=== PATIENT | male | born 1960 | race Caucasian/White ===

== ENCOUNTER 2019-08-21 20:55 | Emergency (ER) | payer SELFPAY ==
--- NOTE | 2019-08-21 21:33 | EDM.PDOC ---
ED HPI GENERAL MEDICAL PROBLEM - General Chief Complaint: General Stated Complaint: NURSE SPOKE TO PT Time Seen by Provider: 08/21/19 21:29 Source of Information: Reports: Patient History Limitations: Reports: No Limitations - History of Present Illness INITIAL COMMENTS - FREE TEXT/NARRATIVE: HISTORY AND PHYSICAL: History of present illness: Patient is a 59-year-old male presenting to the emergency room for bilateral leg cramps and lower back pain. Patient states this is new and would like this checked out as he has had the same symptoms in the past and notified me that the cause of it was "low potassium". Patient describes the pain that he is feeling as "aching and cramping". He rates at a 4 out of 10. 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 He is so notified me that he has bulging disks at L4 and L5. He did report that he has urinary frequency which has been a new finding, but denies urgency or dysuria. Patient denies any fever, chills, headache, change in vision, syncope or near syncope. Denies any chest pain, shortness of breath or cough. Denies any new abdominal pain, nausea, vomiting, diarrhea, constipation or dysuria. Has not noted any blood in urine or stool. Patient has been eating and drinking appropriately. Review of systems: As per history of present illness and below otherwise all systems reviewed and negative. Past medical history: As per history of present illness and as reviewed below otherwise noncontributory. Surgical history: As per history of present illness and as reviewed below otherwise noncontributory. Social history: See social history for further information Family history: As per history of present illness and as reviewed below otherwise noncontributory. Physical exam: General: Patient is a well-nourished and well-developed 59-year-old male. Alert and oriented. Nontoxic in appearance and in no acute distress. Vital signs are stable and have been reviewed by me. HEENT: Atraumatic, normocephalic, pupils equal and reactive bilaterally, negative for conjunctival pallor or scleral icterus, mucous membranes moist, TMs normal bilaterally, throat clear, neck supple, nontender, trachea midline. No drooling or trismus noted. No meningeal signs. No hot potato voice noted. Lungs: Clear to auscultation, breath sounds equal bilaterally, chest nontender. Heart: S1S2, regular rate and rhythm without overt murmur C-spine/Back: No pinpoint vertebral tenderness upon palpation. No crepitus, step -offs or obvious deformities. Patient is ambulatory into the emergency room without difficulty or deficit. Able to rock back on heels and walk on toes. Denies any urinary or fecal incontinence. Denies any numbness, tingling or saddle paresthesia. Abdomen: Soft, nondistended, nontender. Negative for masses or hepatosplenomegaly. Negative for costovertebral tenderness. Skin: Intact, warm, dry. No lesions or rashes noted. Extremities: Atraumatic, moves all extremities per self without difficulty or deficits, negative for cords or calf pain. Neurovascular unremarkable. Neuro: Awake, alert, oriented. Cranial nerves II through XII unremarkable. Cerebellum unremarkable. Motor and sensory unremarkable throughout. Exam nonfocal. Notes: Supportive care measures were reviewed and discussed. Voices understanding and is agreeable to plan of care. Denies any further questions or concerns at this time. Diagnostics: CBC, CMP, EKG (refused), UA Therapeutics: K-Dur Prescription: None Impression: Encounter for medical screening Muscle Cramping Plan: 1. Please use Tylenol and/or Ibuprofen as needed for pain and fever management. 2. Get plenty of Rest. Encourage fluids to prevent dehydration. Adjust your diet to increase foods that are rich in potassium. 3. Please follow up with your primary care provider. Return to the ED as needed as discussed. Definitive disposition and diagnosis as appropriate pending reevaluation and review of above. Bilateral Legs Pain Score (Numeric/FACES): 4 - Related Data Allergies Allergy/AdvReac Type Severity Reaction Status Date / Time morphine AdvReac Headache Verified 08/21/19 21:03 Home Meds: Home Meds Pantoprazole Sodium [Protonix] 20 mg PO DAILY 08/21/19 [History] amLODIPine [Norvasc] 5 mg PO DAILY 08/21/19 [History] Past Medical History HEENT History: Reports: Impaired Vision Cardiovascular History: Reports: Hypertension Psychiatric History: Reports: Anxiety - Infectious Disease History Infectious Disease History: Reports: Hepatitis C - Past Surgical History HEENT Surgical History: Reports: None Social & Family History - Family History Family Medical History: Noncontributory - Tobacco Use Smoking Status *Q: Current Every Day Smoker Years of Tobacco use: 30 Packs/Tins Daily: 1 - Caffeine Use Caffeine Use: Reports: Coffee, Energy Drinks, Soda - Recreational Drug Use Recreational Drug Use: No ED ROS GENERAL - Review of Systems Review Of Systems: ROS reveals no pertinent complaints other than HPI. ED EXAM, GENERAL - Physical Exam Exam: See Below (See dictation) Course - Vital Signs Last Recorded V/S: Last Vital Signs Temp 96.4 F 08/21/19 21:04 Pulse 70 08/21/19 21:04 Resp 20 08/21/19 21:04 BP 141/89 H 08/21/19 21:04 Pulse Ox 94 L 08/21/19 21:04 - Orders/Labs/Meds Orders: Active Orders 24 hr Category Date Time Status EKG Documentation Completion [RC] STAT Care 08/21/19 21:29 Active Potassium Chloride [Klor-Con M20] Med 08/21/19 22:23 Once 40 meq PO ONETIME ONE Labs: Laboratory Tests 08/21/19 08/21/19 08/21/19 Range/Units 21:50 21:50 21:50 WBC 9.39 (4.0-11.0) K/uL RBC 4.80 (4.50-5.90) M/uL Hgb 14.8 (13.0-17.0) g/dL Hct 43.7 (38.0-50.0) % MCV 91.0 (80.0-98.0) fL MCH 30.8 (27.0-32.0) pg MCHC 33.9 (31.0-37.0) g/dL RDW Std Deviation 43.7 (28.0-62.0) fl RDW Coeff of Koby 13 (11.0-15.0) % Plt Count 221 (150-400) K/uL MPV 10.00 (7.40-12.00) fL Neut % (Auto) 54.8 (48.0-80.0) % Lymph % (Auto) 30.6 (16.0-40.0) % [place] % (Auto) 10.3 (0.0-15.0) % Eos % (Auto) 3.9 (0.0-7.0) % Baso % (Auto) 0.4 (0.0-1.5) % Neut # (Auto) 5.1 (1.4-5.7) K/uL Lymph # (Auto) 2.9 H (0.6-2.4) K/uL [place] # (Auto) 1.0 H (0.0-0.8) K/uL Eos # (Auto) 0.4 (0.0-0.7) K/uL Baso # (Auto) 0.0 (0.0-0.1) K/uL Nucleated RBC % 0.0 /100WBC Nucleated RBCs # 0 K/uL Sodium 140 (136-148) mmol/L Potassium 3.3 L (3.5-5.1) mmol/L Chloride 104 (98-107) mmol/L Carbon Dioxide 28.5 (21.0-32.0) mmol/L BUN 16 (7.0-18.0) mg/dL Creatinine 0.8 (0.8-1.3) mg/dL Est Cr Clr Drug Dosing 98.56 mL/min Estimated GFR (MDRD) > 60.0 ml/min Glucose 117 H (74-106) mg/dL Calcium 8.8 (8.5-10.1) mg/dL Total Bilirubin 1.0 (0.2-1.0) mg/dL AST 20 (15-37) IU/L ALT 39 (14-63) IU/L Alkaline Phosphatase 103 (46-116) U/L Total Protein 7.5 (6.4-8.2) g/dL Albumin 3.6 (3.4-5.0) g/dL Globulin 3.9 (2.6-4.0) g/dL Albumin/Globulin Ratio 0.9 (0.9-1.6) Urine Color YELLOW Urine Appearance CLEAR Urine pH 5.5 (5.0-8.0) Ur Specific [place] >= 1.030 (1.001-1.035) Urine Protein NEGATIVE (NEGATIVE) mg/dL Urine Glucose (UA) NEGATIVE (NEGATIVE) mg/dL Urine Ketones NEGATIVE (NEGATIVE) mg/dL Urine Occult Blood NEGATIVE (NEGATIVE) Urine Nitrite NEGATIVE (NEGATIVE) Urine Bilirubin NEGATIVE (NEGATIVE) Urine Urobilinogen 0.2 (<2.0) EU/dL Ur Leukocyte Esterase NEGATIVE (NEGATIVE) Departure - Departure Time of Disposition: 22:25 Disposition: Home, Self-Care 01 Clinical Impression: Encounter for medical screening examination, Muscle cramping - Discharge Information Instructions: Muscle Cramps and Spasms, [id number] Referrals: PCP,None [Primary Care Provider] - Forms: ED Department Discharge Additional Instructions: The following information is given to patients seen in the emergency department who are being discharged to home. This information is to outline your options for follow-up care. We provide all patients seen in our emergency department with a follow-up referral. The need for follow-up, as well as the timing and circumstances, are variable depending upon the specifics of your emergency department visit. If you don't have a primary care physician on staff, we will provide you with a referral. We always advise you to contact your personal physician following an emergency department visit to inform them of the circumstance of the visit and for follow-up with them and/or the need for any referrals to a consulting specialist. The emergency department will also refer you to a specialist when appropriate. This referral assures that you have the opportunity for follow-up care with a specialist. All of these measure are taken in an effort to provide you with optimal care, which includes your follow-up. Under all circumstances we always encourage you to contact your private physician who remains a resource for coordinating your care. When calling for follow-up care, please make the office aware that this follow-up is from your recent emergency room visit. If for any reason you are refused follow-up, please contact the [facility] Emergency Department at and asked to speak to the emergency department charge nurse. [facility] [address] [place] [id number] [facility] [address] [place] [id number] 1. Please use Tylenol and/or Ibuprofen as needed for pain and fever management. 2. Get plenty of Rest. Encourage fluids to prevent dehydration. Adjust your diet to increase foods that are rich in potassium. 3. Please follow up with your primary care provider. Return to the ED as needed as discussed. - My Orders Last 24 Hours: My Active Orders 08/21/19 21:29 EKG Documentation Completion [RC] STAT 08/21/19 22:23 Potassium Chloride [Klor-Con M20] 40 meq PO ONETIME ONE - Assessment/Plan Last 24 Hours: My Active Orders 08/21/19 21:29 EKG Documentation Completion [RC] STAT 08/21/19 22:23 Potassium Chloride [Klor-Con M20] 40 meq PO ONETIME ONE
[2019-08-21 22:13] LABS: BLOOD UREA NITROGEN,BUN 16 mg/dL (7.0-18.0); CARBON DIOXIDE,CO2 28.5 mmol/L (21.0-32.0); CHLORIDE,CL 104 mmol/L (98-107); GLUCOSE RANDOM 117 mg/dL (74-106); POTASSIUM,K 3.3 mmol/L (3.5-5.1); SODIUM,NA 140 mmol/L (136-148)
[2019-08-21] MEDS ORDERED: Potassium Chloride 20 MEQ Tab.ER PO ONE (22:23)
[2019-08-21 22:33] VITALS: BP 139/81; PULSE 75
== END 2019-08-21 22:44 | disposition home or self-care (01) ==
LOC: MW.ED 20:55
DX: R25.2 Cramp and spasm (principal); I10 Essential (primary) hypertension; F17.210 Nicotine dependence, cigarettes, uncomplicated; Z88.5 Allergy status to narcotic agent; Z79.899 Other long term (current) drug therapy
CPT/HCPCS: 36415; 80053; 81003; 85025; 99284; A9270; 99283

== ENCOUNTER 2019-12-27 19:20 | Emergency (ER) | payer OTHER ==
--- NOTE | 2019-12-27 20:00 | EDM.PDOC ---
ED HPI GENERAL MEDICAL PROBLEM - General Chief Complaint: Upper Extremity Injury/Pain Stated Complaint: LEFT ARM INJURY Time Seen by Provider: 12/27/19 19:22 Source of Information: Reports: Patient History Limitations: Reports: No Limitations - History of Present Illness INITIAL COMMENTS - FREE TEXT/NARRATIVE: HISTORY AND PHYSICAL: History of present illness: Patient is a 59-year-old male who presents to the ED today with concern of right shoulder pain x6 months and right bicep pain over the past couple days. 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 Patient states he had a job 6 months ago and noticed that this flared up his right shoulder. Patient states has been out of work for over the past couple months but started working again over this past week. Patient states he is noticed a flareup in the right shoulder pain and now has right bicep pain. 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 Patient states that he has also noticed that he is unable to flex his right bicep. Patient states he has noticed some tearing sensations over the past 6 months in both the shoulder and his elbow where his bicep is. Patient denies any other symptoms or concerns. Patient denies fever, chills, chest pain, shortness of breath, or cough. Denies headache, neck stiff ness, change in vision, syncope, or near syncope. Denies nausea, vomiting, abdominal pain, diarrhea, constipation, or dysuria. Has not noted any blood in urine or stool. Patient has been eating and drinking appropriately. Review of systems: As per history of present illness and below otherwise all systems reviewed and negative. Past medical history: As per history of present illness and as reviewed below otherwise noncontributory. Surgical history: As per history of present illness and as reviewed below otherwise noncontributory. Social history: See social history for further information Family history: As per history of present illness and as reviewed below otherwise noncontributory. Physical exam: General: Patient is alert, oriented, and in no acute distress. Patient sitting comfortably on exam table. HEENT: Atraumatic, normocephalic, pupils equal and reactive bilaterally, negative for conjunctival pallor or scleral icterus, mucous membranes moist, TMs normal bilaterally, throat clear, neck supple, nontender, trachea midline. No drooling or trismus noted. No meningeal signs. No hot potato voice noted. Lungs: Clear to auscultation, breath sounds equal bilaterally, chest nontender. Heart: S1S2, regular rate and rhythm without overt murmur Abdomen: Soft, nondistended, nontender. Negative for masses or hepatosplenomegaly. Negative for costovertebral tenderness. Pelvis: Stable nontender. Genitourinary: Deferred. Rectal: Deferred. Skin: Intact, warm, dry. No lesions or rashes noted. Extremities: Negative for cords or calf pain. Neurovascular unremarkable. Patient does have limited range of motion of the right shoulder and the right elbow due to pain. There is bruising over the medial bicep of the right with bulging of this area. Unable to hook the distal biceps tendon and patient does have pain to this area. Radial pulses grossly intact of the right upper extremity with capillary refill less than 2 seconds. Patient does have full range of motion of the right wrist and digits without pain or difficulty. Neuro: Awake, alert, oriented. Cranial nerves II through XII unremarkable. Cerebellum unremarkable. Motor and sensory unremarkable throughout. Exam nonfocal. Notes: Patient does have bulging of the right bicep area along with bruising. I do suspect a bicep rupture and will refer patient to orthopedics and placed in an immobilizer. Discussed importance for follow-up with an orthopedic provider. Voices understanding and is agreeable to plan of care. Denies any further questions or concerns at this time. Diagnostics: Elbow XR, Shoulder XR (Patient declines EKG) Therapeutics: Shoulder immobilizer Prescription: Diclofenac Impression: Right arm pain, r/o biceps rupture Plan: 1. Rest, ice, elevate the affected extremity. You can apply ice 15 minutes on, 15 minutes off. 2. Tylenol as directed for pain management or discomfort. Take medication as prescribed. 3. Follow up with the Orthopedic provider as discussed. Call the clinic in the morning to establish an appointment time. 4. Return to the ED as needed and as discussed. Definitive disposition and diagnosis as appropriate pending reevaluation and review of above. right arm Pain Score (Numeric/FACES): 5 - Related Data Allergies Allergy/AdvReac Type Severity Reaction Status Date / Time No Known Allergies Allergy Verified 12/27/19 19:34 Home Meds: Home Meds Pantoprazole Sodium [Protonix] 20 mg PO DAILY 08/21/19 [History] amLODIPine [Norvasc] 5 mg PO DAILY 08/21/19 [History] Past Medical History HEENT History: Reports: Impaired Vision Cardiovascular History: Reports: Hypertension Gastrointestinal History: Reports: GERD Psychiatric History: Reports: Anxiety - Infectious Disease History Infectious Disease History: Reports: Hepatitis C - Past Surgical History HEENT Surgical History: Reports: None Social & Family History - Family History Family Medical History: Noncontributory - Tobacco Use Smoking Status *Q: Current Every Day Smoker Years of Tobacco use: 20 Packs/Tins Daily: 1 - Caffeine Use Caffeine Use: Reports: Coffee, Energy Drinks, Soda - Recreational Drug Use Recreational Drug Use: No Review of Systems - Review of Systems Review Of Systems: Comprehensive ROS is negative, except as noted in HPI. ED EXAM, GENERAL - Physical Exam Exam: See Below (see dictation) Course - Vital Signs Last Recorded V/S: Last Vital Signs Temp 97 F 12/27/19 19:35 Pulse 74 12/27/19 19:35 Resp 16 12/27/19 19:35 BP 172/95 H 12/27/19 19:35 Pulse Ox 95 12/27/19 19:35 - Orders/Labs/Meds Orders: Active Orders 24 hr Category Date Time Status DME for Discharge [COMM] Stat Oth 12/27/19 20:11 Ordered Departure - Departure Time of Disposition: 20:54 Disposition: Home, Self-Care 01 Clinical Impression: Right arm pain - Discharge Information Referrals: Heath Millan MD [Primary Care Provider] - Forms: ED Department Discharge Additional Instructions: The following information is given to patients seen in the emergency department who are being discharged to home. This information is to outline your options for follow-up care. We provide all patients seen in our emergency department with a follow-up referral. The need for follow-up, as well as the timing and circumstances, are variable depending upon the specifics of your emergency department visit. If you don't have a primary care physician on staff, we will provide you with a referral. We always advise you to contact your personal physician following an emergency department visit to inform them of the circumstance of the visit and for follow-up with them and/or the need for any referrals to a consulting specialist. The emergency department will also refer you to a specialist when appropriate. This referral assures that you have the opportunity for follow-up care with a specialist. All of these measure are taken in an effort to provide you with optimal care, which includes your follow-up. Under all circumstances we always encourage you to contact your private physician who remains a resource for coordinating your care. When calling for follow-up care, please make the office aware that this follow-up is from your recent emergency room visit. If for any reason you are refused follow-up, please contact the [facility] Emergency Department at and asked to speak to the emergency department charge nurse. [facility] [address] [place] [address] [address] [facility] - [facility] Professional Building [address] [place] [address], [address] [place] [address] 1. Rest, ice, elevate the affected extremity. You can apply ice 15 minutes on, 15 minutes off. 2. Tylenol as directed for pain management or discomfort. Take medication as prescribed. 3. Follow up with the Orthopedic provider as discussed. Call the clinic in the morning to establish an appointment time. 4. Return to the ED as needed and as discussed. Sepsis Event Note - Evaluation Sepsis Screening Result: No Definite Risk - Focused Exam Vital Signs: Vital Signs Temp Pulse Resp BP Pulse Ox 12/27/19 19:35 97 F 74 16 172/95 H 95 Date Exam was Performed: 12/27/19 Time Exam was Performed: 20:54 - My Orders Last 24 Hours: My Active Orders 12/27/19 20:11 DME for Discharge [COMM] Stat - Assessment/Plan Last 24 Hours: My Active Orders 12/27/19 20:11 DME for Discharge [COMM] Stat
--- NOTE | 2019-12-27 20:51 | CR ---
Right elbow: 3 views right elbow were obtained. Comparison: No previous elbow study. Small calcification is noted within the distal triceps tendon. Joint spaces within the elbow are maintained. No acute fracture or other bony abnormality is appreciated. Impression: 1. Small calcification within the distal triceps tendon. 2. Right elbow study is otherwise unremarkable. Diagnostic code #2 Study was dictated in [place] Standard Time
--- NOTE | 2019-12-27 20:51 | CR ---
Right shoulder: 3 views right shoulder were obtained. Small calcifications are seen within the distal rotator cuff off the lateral humeral head. Mild inferior spurring is seen within the acromioclavicular joint. No acute fracture or other bony abnormality is appreciated. Impression: 1. Previous calcific tendinitis. 2. Inferior spurring within the acromioclavicular joint. 3. No additional abnormality is seen. Diagnostic code #2 Study was dictated in [place] Standard Time
[2019-12-27 21:10] VITALS: BP 143/87; PULSE 64
== END 2019-12-27 21:05 | disposition home or self-care (01) ==
LOC: MW.ED 19:20
DX: S40.021A Contusion of right upper arm, initial encounter (principal); I10 Essential (primary) hypertension; K21.9 Gastro-esophageal reflux disease without esophagitis; F17.210 Nicotine dependence, cigarettes, uncomplicated; Z79.899 Other long term (current) drug therapy; X50.9XXA Other and unspecified overexertion or strenuous movements or postures, initial encounter; Y99.0 Civilian activity done for income or pay
CPT/HCPCS: 73030-26-RT; 73030-RT; 73080-26-RT; 73080-RT; 99283-25

== ENCOUNTER 2022-12-14 13:12 | Emergency (ER) | payer SELFPAY ==
[2022-12-14] MEDS ORDERED: Sodium Chloride 0.9% 10 ML Syringe FLUSH PRN ×2 (13:20→13:22)
[2022-12-14] MEDS ORDERED: Sodium Chloride 0.9% 2.5 ML Syringe FLUSH PRN ×2 (13:20→13:22)
[2022-12-14 13:27] VITALS: BP 125/61; PULSE 79
[2022-12-14] MEDS ORDERED: Sodium Chloride 0.9% 1,000 ML IV ONE ×2 (13:28→13:29)
[2022-12-14 13:55] LABS: ACETAMINOPHEN <2.0 ug/mL; BLOOD UREA NITROGEN,BUN 13 mg/dL (7.0-18.0); CARBON DIOXIDE,CO2 28.4 mmol/L (21.0-32.0); CHLORIDE,CL 100 mmol/L (98-107); GLUCOSE RANDOM 126 mg/dL (74-106); LIPASE 72 U/L (73-393); POTASSIUM,K 2.8 mmol/L (3.5-5.1); SODIUM,NA 138 mmol/L (136-148)
[2022-12-14 13:56] LABS: ESTIMATED GFR 69 mL/min (>60)
[2022-12-14] MEDS ORDERED: Sodium Chloride 0.9% 250 ML IV ONE (14:20)
[2022-12-14] MEDS ORDERED: Potassium Chloride 20 MEQ in Premix Bag 1 BAG IV ONE (14:20)
[2022-12-14 15:12] LABS: CORONAVIRUS COVID-19 NAA NEGATIVE (NEGATIVE); INFLUENZA A NAA NEGATIVE (NEGATIVE); INFLUENZA B NAA NEGATIVE (NEGATIVE); RESPIRATORY SYNCYTIAL VIR NAA NEGATIVE (NEGATIVE)
== END 2022-12-14 14:50 | disposition left against medical advice (07) ==
LOC: MW.ED 13:12
DX: T46.1X2A Poisoning by calcium-channel blockers, intentional self-harm, initial encounter (principal); Z20.822 Contact with and (suspected) exposure to COVID-19; Z79.899 Other long term (current) drug therapy
CPT/HCPCS: 0241U; 36415; 71045; 80053; 80143; 80179; 80307; 82803; 83605; 83690; 83735; 83880; 84443; 84484; 85025; 85610; 93005; 96361; 96365; 99284; J3480; J3490; J7030; J7050

== ENCOUNTER 2023-04-14 03:32 | Emergency (ER) | payer MEDICAID ==
[2023-04-14 03:51] VITALS: BP 127/82; PULSE 67
== END 2023-04-14 04:03 | disposition home or self-care (01) ==
LOC: MW.ED 03:32
DX: R61 Generalized hyperhidrosis (principal); K21.9 Gastro-esophageal reflux disease without esophagitis; I10 Essential (primary) hypertension; Z72.0 Tobacco use; Z79.899 Other long term (current) drug therapy
CPT/HCPCS: 99283